=== PATIENT | female | born 1970 | race African-American/Black ===

== ENCOUNTER 2017-01-02 09:43 | Emergency (ER) | payer SELFPAY ==
[2017-01-02] MEDS ORDERED: KETOROLAC TROMETHAMINE INJ/PF 30 MG/1 ML SDV IV ONE (10:30)
[2017-01-02] MEDS ORDERED: HYDROCODONE/ACETAMINOPHEN 5-325 MG TABLET PO ONE (10:30)
--- NOTE | 2017-01-02 10:30 | ER Document Report ---
ED Cardiac - General Chief Complaint: Chest Pain Stated Complaint: CHEST PAIN Notes: The patient is a 46-year-old female, past medical history diabetes, hypertension , gastric sleeve 3 years ago, presents with 2 days of right upper chest wall pain that is worse when she moves her right shoulder and when she palpates the area. She is also having right scapular pain. She is taking ibuprofen without much relief. She has had this in the past and was told that it was a muscle strain. She denies fevers, cough, leg swelling, shortness of breath, nausea, vomiting or abdominal pain. TRAVEL OUTSIDE OF THE [place] IN LAST 30 DAYS: No Past Medical History - General Information source: Patient - Social History Smoking Status: Current Every Day Smoker Family History: Reviewed & Not Pertinent Renal/ Medical History: Denies: Hx Peritoneal Dialysis Review of Systems - Review of Systems Notes: REVIEW OF SYSTEMS: CONSTITUTIONAL: -fevers, -chills EENT: -eye pain, -difficulty swallowing, -nasal congestion CARDIOVASCULAR: +chest pain, -syncope. RESPIRATORY: -cough, -SOB GASTROINTESTINAL: -abdominal pain, - nausea, -vomiting, -diarrhea GENITOURINARY: -dysuria, -hematuria MUSCULOSKELETAL: -back pain, -neck pain SKIN: -rash or skin lesions. HEMATOLOGIC: -easy bruising or bleeding. LYMPHATIC: -swollen, enlarged glands. NEUROLOGICAL: -altered mental status or loss of consciousness, -headache, - neurologic symptoms PSYCHIATRIC: -anxiety, -depression. ALL OTHER SYSTEMS REVIEWED AND NEGATIVE. Physical Exam - Vital signs Vitals: Temp Pulse Resp BP Pulse Ox 98.1 F 77 20 172/86 H 99 01/02/17 09:47 01/02/17 09:47 01/02/17 09:47 01/02/17 09:47 01/02/17 09:47 - Notes Notes: PHYSICAL EXAMINATION: GENERAL: Well-appearing, well-nourished and in no acute distress. HEAD: Atraumatic, normocephalic. EYES: Pupils equal round and reactive to light, extraocular movements intact, sclera anicteric, conjunctiva are normal. ENT: nares patent, oropharynx clear without exudates. Moist mucous membranes. NECK: Normal range of motion, supple without lymphadenopathy LUNGS: Breath sounds clear to auscultation bilaterally and equal. No wheezes rales or rhonchi. HEART: Regular rate and rhythm without murmurs. Tenderness over right upper chest wall. ABDOMEN: Soft, nontender, normoactive bowel sounds. No guarding, no rebound. No masses appreciated. EXTREMITIES: Normal range of motion, no pitting or edema. No cyanosis. NEUROLOGICAL: Cranial nerves grossly intact. Normal speech, normal gait. Normal sensory, motor, and reflex exams. PSYCH: Normal mood, normal affect. SKIN: Warm, Dry, normal turgor, no rashes or lesions noted. Course - Re-evaluation Re-evalutation: Pt has HEART score 3. Moderate risk for PE. D-dimer will be sent. D-dimer negative and troponin negative. Chest x-ray and EKG does not show any acute abnormalities. Patient is chronically anemic and has never required a blood transfusion. No active bleeding at this time. Patient eating in the emergency room. Patient feels much better. Instructed patient to continue Naprosyn and heating pads with follow-up at her primary care physician in 2 days to have her symptoms rechecked. Patient is safe for outpatient workup of this chest pain. - Vital Signs Vital signs: Temp Pulse Resp BP Pulse Ox 98.1 F 77 20 172/86 H 99 01/02/17 09:58 01/02/17 09:58 01/02/17 09:58 01/02/17 09:58 01/02/17 09:58 - Laboratory Result Diagrams: 01/02/17 10:30 01/02/17 10:30 Laboratory results interpreted by me: 01/02/17 01/02/17 01/02/17 10:30 10:30 10:30 RBC 3.38 L Hgb 7.8 L Hct 26.2 L MCV 77 L MCH 23.2 L MCHC 30.0 L RDW 16.6 H Glucose 64 L AST 62 H NT-Pro-B Natriuret Pep 297 H - EKG Interpretation by [facility] EKG shows normal: Sinus rhythm, [place], Intervals, QRS Complexes, ST-T Waves Discharge - Discharge Clinical Impression: Chest pain Qualifiers: Chest pain type: unspecified Qualified Code(s): R07.9 - Chest pain, unspecified Condition: Good Disposition: HOME, SELF-CARE Additional Instructions: Take Naprosyn with food to help with any pain. You may also use heating pads and ice packs. Your chest x-ray, EKG and labs looking at your heart and lungs are unremarkable today. You must follow-up with your primary care physician on Wednesday for further evaluation and treatment of this chest pain. CHEST PAIN OF UNCLEAR CAUSE: The exact cause of your chest pain isn't clear. Fortunately, there is no evidence of a dangerous medical condition. Further testing may be required to find the source of the pain. Most often, we find that this pain is coming from the chest wall -- the muscles or rib joints in the chest. But chest pain can come from the lung and lung lining, the esophagus, the heart valves or heart lining, and even the stomach or gallbladder. Rest. Eat lightly until the pain is gone. We may prescribe medicine for pain and inflammation. You should call the physician immediately if the pain radiates to the shoulder, jaw or arms; if you start to run a fever or develop a cough; or if you develop shortness of breath, or other new or alarming symptoms. NORMAL EXAM AND WORKUP: At this time, your examination and workup show no significant abnormality. No significant abnormal physical findings were noted. All laboratory, EKG, and imaging (x-ray, CT scans, ultrasound) studies that were ordered show no significant abnormality. Although your examination and all studies that were ordered showed no significant abnormal finding, there are no examinations and no studies that are 100% accurate. There is always the possibility that some abnormality could exist and not be detected with physical examination or within the limits and capabilities of laboratory and other studies. You should return or follow up as you were instructed on your visit today for further evaluation if your symptoms do not resolve. CHEST WALL PAIN: Your chest pain may be coming from the chest wall. This is often caused by straining the muscles or joints in the chest during physical activity, direct trauma, coughing, or vigorous vomiting. Persons with arthritis are especially prone to this type of pain, due to inflammation of the cartilage joints near the breast bone. Occasionally, no cause can be found. Rest from strenuous physical activity. This kind of chest pain is usually made worse by movement of the chest. Depending on the symptoms, we may prescribe medicine for pain, muscle relaxation, and antiinflammatory effects. If the pain is new, and seems to be due to muscle strain, cold packs can help. Otherwise, apply gentle warmth to the painful area for 15 minutes every hour or two. You should call contact the doctor immediately if things change. Further evaluation is needed if you develop a fever or cough, if the nature of the pain changes, or if you become short of breath. ANGINA EPISODE: Your physician has diagnosed the pain you experienced as an episode of angina. Angina occurs when a portion of the heart muscle temporarily lacks oxygen. It does not cause any permanent heart damage, but serves as a warning. Hospitalization is not necessary now. Evaluation of your cardiac condition , and medical therapy for angina will be necessary. It's important you be sure to keep all appointments and take medication exactly as prescribed. Angina is usually treated with a type of "nitrate" medication. This is available as ointment, pills, or sublingual (under the tongue) tablets. Depending on your clinical situation, other medications may be added to help control angina. These may include beta blockers or calcium blockers. If episodes of angina are occurring with increased frequency, or if chest pain lasts longer than 15 minutes or does not respond to nitroglycerin, you must seek emergency medical care immediately. ACID REFLUX DISEASE (GERD): Gastro-Esophageal Reflux Disease (GERD) is caused by stomach acid refluxing back up into the esophagus. The valve at the end of the esophagus may be weak. This is common in persons with a hiatal hernia. GERD symptoms can include indigestion, chest pain, heartburn, or food "sticking." Certain foods, alcohol, and aspirin can make GERD worse. Treatment depends on the severity. Usually, antacids or acid-suppressing medicines are used. When the esophagus is acutely inflamed, the physician will often prescribe membrane-protective drugs such as Carafate. Some patients benefit from medication such as Reglan that tightens the valve at the top of the stomach. Avoid those foods that bring on your symptoms. For many people, these foods are coffee, chocolate, onions, garlic, and carbonated drinks. Don't use alcohol, aspirin, caffeine, or tobacco. Don't eat late at night -- within 4 hours of bedtime. Don't over-eat. If necessary, elevate the head of your bed about 4 inches so that stomach acid will not roll up into your esophagus. Call the doctor if you develop severe chest pain, inability to swallow fluids, fever, or worsening symptoms. FOLLOW-UP CARE: If you have been referred to a physician for follow-up care, call the physician s office for an appointment as you were instructed or within the next two days. If you experience worsening or a significant change in your symptoms, notify the physician immediately or return to the Emergency Department at any time for re-evaluation. Forms: Elevated Blood Pressure, Smoking Cessation Education, Return to Work
[2017-01-02 10:53] LABS: ABSOLUTE BASOPHILS # (AUTO) 0.1 10^3/uL (0.0-0.2); ABSOLUTE EOSINOPHILS # (AUTO) 0.2 10^3/uL (0.0-0.6); ABSOLUTE LYMPHOCYTES (AUTO) 1.6 10^3/uL (0.5-4.7); ABSOLUTE MONOCYTES (AUTO) 0.5 10^3/uL (0.1-1.4); ABSOLUTE NEUT (AUTO) 3.8 10^3/uL (1.7-8.2); BASOPHILS % (AUTO) 0.8 % (0-2); EOSINOPHILS % (AUTO) 2.8 % (0-6); HEMATOCRIT 26.2 % (36.0-47.0); HGB HCT DIFFERENCE -2.8; LYMPHOCYTES % (AUTO) 26.4 % (13-45); MEAN CORPUSCULAR HEMOGLOBIN 23.2 pg (27.0-33.4); MEAN CORPUSCULAR VOLUME 77 fl (80-97); MONOCYTES % (AUTO) 8.1 % (3-13); RED BLOOD COUNT 3.38 10^6/uL (3.72-5.28); RED CELL DISTRIBUTION WIDTH 16.6 % (11.5-14.0); SEGMENTED NEUTROPHILS % (AUTO) 61.9 % (42-78); WHITE BLOOD COUNT 6.1 10^3/uL (4.0-10.5)
[2017-01-02 11:00] LABS: HEMOGLOBIN 7.8 g/dL (12.0-15.5)
[2017-01-02 11:09] LABS: ALANINE AMINOTRANSFERASE 51 U/L (9-52); ALBUMIN 3.7 g/dL (3.5-5.0); ALKALINE PHOSPHATASE 109 U/L (38-126); ANION GAP 7 (5-19); ASPARTATE AMINO TRANSFERASE 62 U/L (14-36); BILIRUBIN,TOTAL 0.6 mg/dL (0.2-1.3); BLOOD UREA NITROGEN 13 mg/dL (7-20); CALCIUM 8.9 mg/dL (8.4-10.2); CARBON DIOXIDE 30 mmol/L (22-30); CHLORIDE 107 mmol/L (98-107); CREATINE KINASE 55 U/L (30-135); CREATININE RESULT 0.72 mg/dL (0.52-1.25); GLUCOSE 64 mg/dL (75-110); LIPASE 129.5 U/L (23-300); POTASSIUM 3.6 mmol/L (3.6-5.0); SODIUM 143.6 mmol/L (137-145); TOTAL PROTEIN 6.9 g/dL (6.3-8.2)
[2017-01-02 11:21] LABS: TROPONIN I < 0.012 ng/mL
[2017-01-02 12:04] VITALS: BP 142/79
--- NOTE | 2017-01-02 19:29 | EKG REPORT ---
SEVERITY:- BORDERLINE ECG - SINUS RHYTHM BORDERLINE R WAVE PROGRESSION, ANTERIOR LEADS : Confirmed by: Tariq Hager MD 02-Jan-2017 19:28:47
== END 2017-01-02 12:09 | disposition home or self-care (01) ==
LOC: ER 09:43
DX: R07.9 Chest pain, unspecified (principal); E11.9 Type 2 diabetes mellitus without complications; I10 Essential (primary) hypertension; F17.210 Nicotine dependence, cigarettes, uncomplicated
CPT/HCPCS: 93005; 99285; 96374; 36415; 82550; 83690; 85025; 80076; 80048; 84484; 85379; 83880; 71020; 93010; J1885

== ENCOUNTER 2017-02-23 13:52 | Emergency (ER) | payer SELFPAY ==
--- NOTE | 2017-02-23 15:01 | ER Document Report ---
ED GI/ - General Chief Complaint: STD Exposure Stated Complaint: STD CHECK Time seen by provider: 14:58 Mode of Arrival: Ambulatory Information source: Patient Notes: 46-year-old female presents to ED for concern of STDs exposure. She states she has a female significant other now and when they were "having fun "she had some bleeding. She states she's not been with a man in 10 months that she has an STD she needs to know. TRAVEL OUTSIDE OF THE [place] IN LAST 30 DAYS: No - HPI Patient complains to provider of: Vaginal bleeding Onset: This afternoon Timing/Duration: Better Quality of pain: No pain Pain Level: Denies Vaginal bleeding (Compared to normal period): Spotting LMP: last week Associated symptoms: Other - Vaginal bleeding Exacerbated by: Other - "Having fun " Relieved by: Denies Similar symptoms previously: Yes Recently seen / treated by doctor: No - Related Data Allergies/Adverse Reactions: No Known Allergies Allergy (Verified 02/23/17 14:14) Past Medical History - General Information source: Patient - Social History Smoking Status: Current Every Day Smoker Cigarette use (# per day): Yes - 6 cigarettes a day Smoking Education Provided: Yes - less than 2 minutes Frequency of alcohol use: Social - Couple times a week Drug Abuse: None Occupation: [employer] Lives with: Spouse/Significant other Family History: Reviewed & Not Pertinent Patient has suicidal ideation: No Patient has homicidal ideation: No - Past Medical History Cardiac Medical History: Reports: Hx Hypertension Pulmonary Medical History: Reports: None EENT Medical History: Reports: None Neurological Medical History: Reports: None Endocrine Medical History: Reports: Hx Diabetes Mellitus Type 2, Hx Hypothyroidism Renal/ Medical History: Reports: None Malignancy Medical History: Reports: None GI Medical History: Reports: None Musculoskeltal Medical History: Reports None Skin Medical History: Reports None Psychiatric Medical History: Reports: None Traumatic Medical History: Reports: None Infectious Medical History: Reports: None Past Surgical History: Reports: Hx Gastric Bypass Surgery - Gastric sleeve Review of Systems - Review of Systems Constitutional: No symptoms reported EENT: No symptoms reported Cardiovascular: No symptoms reported Respiratory: No symptoms reported Gastrointestinal: No symptoms reported Genitourinary: No symptoms reported Female Genitourinary: Vaginal bleeding Musculoskeletal: No symptoms reported Skin: No symptoms reported Hematologic/Lymphatic: No symptoms reported Neurological/Psychological: No symptoms reported -: Yes All other systems reviewed and negative Physical Exam - Vital signs Vitals: Temp Pulse Resp BP Pulse Ox 99.3 F 80 16 139/74 H 98 02/23/17 14:17 02/23/17 14:17 02/23/17 14:17 02/23/17 14:17 02/23/17 14:17 Interpretation: Normal - General General appearance: Appears well, Alert - HEENT Head: Normocephalic, Atraumatic Eyes: Normal Pupils: PERRL - Respiratory Respiratory status: No respiratory distress Chest status: Nontender Breath sounds: Normal Chest palpation: Normal - Cardiovascular Rhythm: Regular Heart sounds: Normal auscultation Murmur: No - Abdominal Inspection: Normal Distension: No distension Bowel sounds: Normal Tenderness: Nontender Organomegaly: No organomegaly - Back Back: Normal, Nontender - Extremities General upper extremity: Normal inspection, Nontender, Normal color, Normal ROM , Normal temperature General lower extremity: Normal inspection, Nontender, Normal color, Normal ROM , Normal temperature, Normal weight bearing. No: Jenifer's sign - Neurological Neuro grossly intact: Yes Cognition: Normal Orientation: AAOx4 [place] Coma Scale Eye Opening: Spontaneous [place] Coma Scale Verbal: Oriented [place] Coma Scale Motor: Obeys Commands Ond[place] Coma Scale Total: 15 Speech: Normal Motor strength normal: LUE, RUE, LLE, RLE Sensory: Normal - Psychological Associated symptoms: Normal affect, Normal mood - Skin Skin Temperature: Warm Skin Moisture: Dry Skin Color: Normal Course - Re-evaluation Re-evalutation: 02/23/17 16:13 Patient was treated with azithromycin 1 g Rocephin 250 IM with lidocaine and Macrobid. She stated she had a possible STD exposure and she has a UTI. Urine culture sent. 02/23/17 19:54 Patient returned called to the emergency room and the GC and Chlamydia were negative patient was informed. - Vital Signs Vital signs: Temp Pulse Resp BP Pulse Ox 97.4 F 69 18 135/79 H 100 02/23/17 16:15 02/23/17 16:15 02/23/17 16:15 02/23/17 16:15 02/23/17 16:15 - Laboratory Laboratory results interpreted by me: 02/23/17 15:07 Urine Urobilinogen 2.0 H Ur Leukocyte Esterase TRACE H Discharge - Discharge Clinical Impression: Possible exposure to STD UTI (urinary tract infection) Qualifiers: Urinary tract infection type: site unspecified Hematuria presence: without hematuria Qualified Code(s): N39.0 - Urinary tract infection, site not specified Condition: Stable Disposition: HOME, SELF-CARE Instructions: Family Physicians / Practices Additional Instructions: URINARY TRACT INFECTION: Your evaluation indicates that you have a urinary tract infection. This is due to germs growing in the bladder. This is a common problem. This infection usually responds quickly to antibiotics. Your antibiotic should be taken exactly as prescribed. Drink plenty of fluids -- three to four quarts a day. Occasionally, a bladder anesthetic will be prescribed to help stop the feeling of urgency until the antibiotic has a chance to clear the infection. This may cause your urine to be dark orange. Certain urine infections require a culture. If the doctor obtained a culture, the results will be back in two days. You should call to see if a change in treatment is needed. A repeat urinalysis after you finish treatment is often recommended. The physician will let you know if further testing is required. Call the doctor if you develop fever, chills, flank pain, inability to urinate, or blood in the urine. NITROFURANTOIN (MACRODANTIN, MACROBID): You have received a prescription for nitrofurantoin (Macrodantin). This antibiotic is used for urinary tract infections. Women who are or nursing should notify the physician before taking this medicine. If you have ever had a problem caused by this medication in the past, be sure the physician is aware of it. Common side effects of this medicine include nausea, vomiting, or decreased appetite. Notify your physician if these side effects become severe. Immediately stop this medicine and call the physician if you develop cough , shortness of breath, chest pain, weakness, jaundice (yellow color of the skin and whites of the eyes), or a skin rash. Rocephin You have been given an injection of an antibiotic called Rocephin ( ceftriaxone). Sometimes the injection must be combined with antibiotic pills. For some infections, such as an uncomplicated ear infection, Rocephin provides all the antibiotic that's needed. The antibiotic will be in your body for about two days. For serious infections, we usually repeat doses of Rocephin daily. Side effects are very unusual following a shot. Women may develop vaginal yeast infections, and babies can get yeast (thrush) in the mouth following the use of antibiotics. Contact your physician if you have symptoms with this medication. Allergy to this antibiotic can result in hives, wheezing, faintness, or itching. If symptoms of allergy occur, call the doctor at once. AZITHROMYCIN: Azithromycin (Zithromax) is a broad spectrum antibiotic in the same class as erythromycin. It can treat a variety of bacterial infections, but is most frequently used for respiratory infections. Azithromycin is extremely long-lasting. It accumulates in body tissues and continues to kill bacteria for many days. In order to improve absorption, Azithromycin should be taken at least one hour before or two hours after a meal. It does not have the same strong tendency to upset the stomach as erythromycin and is usually very well tolerated. Patients who have had a rash or other true allergic reactions to erythromycin should not take this medication. Call if you develop gastrointestinal distress, severe diarrhea, rash, hives, itching, or shortness of breath. FOLLOW-UP CARE: If you have been referred to a physician for follow-up care, call the physician s office for an appointment as you were instructed or within the next two days. If you experience worsening or a significant change in your symptoms, notify the physician immediately or return to the Emergency Department at any time for re-evaluation. Please call [phone] and about 2-3 hours for your results you will need to speak to me yourself I cannot leave messages and I cannot give results to anyone but yourself Prescriptions: Nitrofurantoin/Nitrofuran Mac [Macrobid 100 mg Capsule] 1 tab PO BID #20 capsule Forms: Smoking Cessation Education, Elevated Blood Pressure
[2017-02-23 15:46] LABS: AMORPHOUS SEDIMENT,URINE TRACE /HPF; APPEARANCE,URINE SLIGHTLY-CLOUDY; BILIRUBIN,URINE NEGATIVE (NEGATIVE); GLUCOSE, URINE NEGATIVE (NEGATIVE); KETONES,URINE NEGATIVE (NEGATIVE); LEUKOCYTE ESTERASE,URINE TRACE (NEGATIVE); NITRITE,URINE NEGATIVE (NEGATIVE); PROTEIN,URINE NEGATIVE (NEGATIVE); URINE SPECIFIC GRAVITY 1.018
[2017-02-23] MEDS ORDERED: AZITHROMYCIN 250 MG TABLET PO ONE (15:58)
[2017-02-23] MEDS ORDERED: NITROFURANTOIN MONOHYD/M-CRYST 100 MG CAPSULE PO ONE (15:58)
[2017-02-23] MEDS ORDERED: CEFTRIAXONE INJ 250 MG VIAL IM ONE (15:58)
[2017-02-23] MEDS ORDERED: LIDOCAINE 1% INJ-PF (10 MG/ML) 30 ML SDV INJ ONE (15:58)
[2017-02-23 16:18] VITALS: BP 135/79
[2017-02-23 17:09] LABS: CHLAM PCR NOT DETECTED (NOT DETECT)
== END 2017-02-23 16:43 | disposition home or self-care (01) ==
LOC: ER 13:52
DX: N39.0 Urinary tract infection, site not specified (principal); Z20.2 Contact with and (suspected) exposure to infections with a predominantly sexual mode of transmission; F17.210 Nicotine dependence, cigarettes, uncomplicated
CPT/HCPCS: 99283; 96372; 87086; 87210; 81001; 87491; 87591; J3490; J0696; J8499

== ENCOUNTER 2019-03-29 19:54 | Observation (INO) | payer BC ==
--- NOTE | 2019-03-29 20:05 | ER Document Report ---
ED Medical Screen (RME) - General Stated Complaint: ABDOMINAL PAIN Time Seen by Provider: 03/29/19 20:02 Mode of Arrival: Wheelchair Information source: Patient, Friend Notes: Patient presents to the emergency department with complaints of severe epigastric abdominal pain that radiates to her back. Patient reports she was at work at the [employer] when it started all of a sudden. Patient reports she vomited did one time. Reports history of hypertension and diabetes. Reports that she had a gastric sleeve done and is no longer a diabetic. Kyler denies trauma. Denies diarrhea. No complaints of cardiac disease. Patient is very upset, moaning and crying. Reporting she is in severe pain. I have greeted and performed a rapid initial assessment of this patient. A comprehensive ED assessment and evaluation of the patient, analysis of test results and completion of the medical decision making process will be conducted by additional ED providers. Dictation of this chart was performed using voice recognition software; therefore, there may be some unintended grammatical errors. TRAVEL OUTSIDE OF THE [place] IN LAST 30 DAYS: No - Related Data Allergies/Adverse Reactions: No Known Allergies Allergy (Verified 02/23/17 14:14) Past Medical History - Past Medical History Cardiac Medical History: Reports: Hx Hypertension Endocrine Medical History: Reports: Hx Diabetes Mellitus Type 2, Hx Hypothyroidism Renal/ Medical History: Denies: Hx Peritoneal Dialysis Past Surgical History: Reports: Hx Abdominal Surgery - Gastric Sleeve, Hx Gastric Bypass Surgery - Gastric sleeve
--- NOTE | 2019-03-29 20:39 | RADIOLOGY REPORT (SQ) ---
EXAM DESCRIPTION: XR CHEST 2 VIEWS COMPLETED DATE/TME: 03/29/2019 20:03 CLINICAL HISTORY: 48 years, Female, epigastric chest pain COMPARISON: None. NUMBER OF VIEWS: Two TECHNIQUE: PA and lateral chest radiographs were obtained. LIMITATIONS: None. FINDINGS: Cardiac and mediastinal contours are normal in appearance. Lungs are clear. No pleural effusion or pneumothorax. IMPRESSION: No acute disease. copyright 2010 [employer]- All Rights Reserved
[2019-03-29 21:01] LABS: ABSOLUTE EOSINOPHILS # (AUTO) 0.1 10^3/uL (0.0-0.6); ABSOLUTE MONOCYTES (AUTO) 0.3 10^3/uL (0.1-1.4); ABSOLUTE NEUT (AUTO) 4.7 10^3/uL (1.7-8.2); BASOPHILS % (AUTO) 0.6 % (0-2); EOSINOPHILS % (AUTO) 1.3 % (0-6); HEMATOCRIT 32.9 % (36.0-47.0); LYMPHOCYTES % (AUTO) 15.9 % (13-45); MEAN CORPUSCULAR HEMOGLOBIN 23.8 pg (27.0-33.4); MEAN CORPUSCULAR HGB CONC 30.5 g/dL (32.0-36.0); MEAN CORPUSCULAR VOLUME 78 fl (80-97); MONOCYTES % (AUTO) 4.8 % (3-13); PLATELET COUNT 222 10^3/uL (150-450); RED BLOOD COUNT 4.21 10^6/uL (3.72-5.28); SEGMENTED NEUTROPHILS % (AUTO) 77.4 % (42-78); TOTAL CELLS COUNTED % (AUTO) 100 %; WHITE BLOOD COUNT 6.1 10^3/uL (4.0-10.5)
[2019-03-29] MEDS ORDERED: HYDROMORPHONE HCL INJ/PF 2 MG/ML AMPULE IV ONE ×2 (21:08→21:58)
[2019-03-29] MEDS ORDERED: ONDANSETRON HCL INJ/PF 4 MG/2 ML SDV IV ONE (21:08)
[2019-03-29] MEDS ORDERED: NORMAL SALINE 1000 ML 1,000 ML IV ONE (21:09)
--- NOTE | 2019-03-29 21:17 | ER Document Report ---
ED GI/ - General Chief Complaint: Epigastric Pain Stated Complaint: ABDOMINAL PAIN Time Seen by Provider: 03/29/19 20:02 Mode of Arrival: Wheelchair TRAVEL OUTSIDE OF THE [place] IN LAST 30 DAYS: No - HPI Notes: 03/29/19 21:11 Patient is a 48-year-old female presents to the emergency department with an acute onset of epigastric pain and vomiting that started around 530 PM today. Patient states that she was at work when she developed nausea and vomiting. Patient reports that the epigastric pain feels like a sharp stabbing discomfort that radiates straight into her back. Patient has vomited twice since 530. Patient last ate a slice of pizza around 1230. Patient complains of severe pain. Patient does have a history of a gastric sleeve which was placed around 1290-2868. Denies Diarrhea. Patient reports that she is a social drinker last beverage was 2 days ago. - Related Data Allergies/Adverse Reactions: No Known Allergies Allergy (Verified 02/23/17 14:14) Past Medical History - General Information source: Patient, Friend - Social History Smoking Status: Current Every Day Smoker Cigarette use (# per day): Yes - 5-6 CIGARETTES PER DAY Smoking Education Provided: Yes Frequency of alcohol use: Social Drug Abuse: Marijuana Lives with: Family Family History: Reviewed & Not Pertinent Patient has suicidal ideation: No Patient has homicidal ideation: No - Past Medical History Cardiac Medical History: Reports: Hx Hypertension Pulmonary Medical History: Reports: None EENT Medical History: Reports: None Neurological Medical History: Reports: None Endocrine Medical History: Reports: Hx Diabetes Mellitus Type 2, Hx Hypothyroidism Renal/ Medical History: Reports: None. Denies: Hx Peritoneal Dialysis Malignancy Medical History: Reports: None GI Medical History: Reports: None Musculoskeletal Medical History: Reports None Skin Medical History: Reports None Psychiatric Medical History: Reports: None Traumatic Medical History: Reports: None Infectious Medical History: Reports: None Past Surgical History: Reports: Hx Abdominal Surgery - Gastric Sleeve, Hx Gastric Bypass Surgery - Gastric sleeve Review of Systems - Review of Systems Constitutional: See HPI EENT: No symptoms reported Cardiovascular: No symptoms reported Respiratory: No symptoms reported Gastrointestinal: See HPI Genitourinary: No symptoms reported Female Genitourinary: No symptoms reported Musculoskeletal: No symptoms reported Skin: No symptoms reported Hematologic/Lymphatic: No symptoms reported Neurological/Psychological: No symptoms reported Physical Exam - Vital signs Vitals: Temp Pulse Resp BP Pulse Ox 98.4 F 61 20 178/81 H 99 03/29/19 20:01 03/29/19 20:01 03/29/19 20:01 03/29/19 20:01 03/29/19 20:01 Interpretation: Hypertensive - Notes Notes: GENERAL: Ill-appearing, + acute distress, unable to find position of comfort on stretcher, rocking back and forth on bed HEAD: Atraumatic, normocephalic. EYES: Pupils equal round and reactive to light, extraocular movements intact, sclera anicteric, conjunctiva are normal. ENT: TMs normal, nares patent, oropharynx clear without exudates. Moist mucous membranes. NECK: Normal range of motion, supple without lymphadenopathy or JVD. LUNGS: Breath sounds clear to auscultation bilaterally and equal. No wheezes rales or rhonchi. HEART: Regular rate and rhythm without murmurs, rubs or gallops. ABDOMEN: Soft, epigastric and LUQ tenderness, normoactive bowel sounds. + guarding, no rebound. No masses appreciated. EXTREMITIES: Normal range of motion, no pitting or edema. No clubbing or cyanosis. NEUROLOGICAL: Cranial nerves II through XII grossly intact. Normal speech, normal gait. PSYCH: Normal mood, normal affect. SKIN: Warm, Dry, normal turgor, no rashes or lesions noted. Course - Re-evaluation Re-evalutation: 03/29/19 21:10 Upon initial evaluation patient is in obvious acute distress. Patient is rocking back and forth on stretcher unable to find position of comfort. Patient is guarding abdomen. Abdomen is soft and tender in the epigastric and left upp er quadrant region it patient does report a history of gastric sleeve. Appropriate lab work was placed in triage and blood has been drawn, labs pending. Will medicate for nausea and pain control. Will initiate IV fluid bolus. Due to the history of gastric sleeve plan the plan is to order imaging to rule out perforation or any other emergent problems. Will obtain a more thorough abdominal assessment once patient is more comfortable. 03/29/19 21:48 After receiving pain medication patient states that her pain level has slightly improved. Patient is able to rest on her back. Patient continues to have significant tenderness with palpation to the epigastric and left upper quadrant region. CT scan ordered at this time. Lipase, liver enzymes are normal. Continue to monitor. 03/29/19 23:31 Updated patient on the results of the CT scan. Patient resting more comfortably, smiling and appropriate. Informed patient that gallstones were noted in the CT scan and for further evaluation a ultrasound would be needed. Patient and family verbalized understanding and denies questions or concerns at this time. 03/30/19 00:26 Patient ultrasound positive for acute cholecystitis, the ultrasound did show pericholecystic fluid. Spoke with on-call surgicalist Dr. Mcclellan who will admit patient. 03/30/19 00:49 Updated on plan of care and admission. Aware to stay n.p.o. Resting comfortably on stretcher. Patient and family deny questions at this time. - Vital Signs Vital signs: Temp Pulse Resp BP Pulse Ox 98.4 F 61 12 195/101 H 100 03/29/19 20:01 03/29/19 20:01 03/29/19 23:00 03/29/19 22:02 03/29/19 23:00 - Laboratory Result Diagrams: 03/29/19 20:45 03/29/19 20:45 Laboratory results interpreted by me: 03/29/19 03/29/19 03/29/19 20:45 20:45 23:40 Hgb 10.0 L Hct 32.9 L MCV 78 L MCH 23.8 L MCHC 30.5 L RDW 15.0 H Potassium 3.5 L Urine Ketones 20 H Urine Blood SMALL H Urine Urobilinogen 4.0 H 03/29/19 21:51 She is slightly anemic with a hemoglobin of 10 and hematocrit of 32.9. Patient states that she has a history of anemia and is currently taking iron for this. - Diagnostic Test Radiology reviewed: Reports reviewed Discharge - Discharge Clinical Impression: Cholelithiasis, Abdominal pain, Nausea & vomiting, Cholecystitis Condition: Stable Disposition: ADMITTED OBSERVATION Admitting Provider: Surgicalist Unit Admitted: Surgical Floor
[2019-03-29 21:36] LABS: ALANINE AMINOTRANSFERASE 30 U/L (9-52); ALKALINE PHOSPHATASE 104 U/L (38-126); ANION GAP 8 (5-19); ASPARTATE AMINO TRANSFERASE 24 U/L (14-36); BILIRUBIN,DIRECT 0.2 mg/dL (0.0-0.4); BILIRUBIN,TOTAL 0.3 mg/dL (0.2-1.3); BLOOD UREA NITROGEN 13 mg/dL (7-20); CALCIUM 9.9 mg/dL (8.4-10.2); CARBON DIOXIDE 29 mmol/L (22-30); CHLORIDE 104 mmol/L (98-107); CREATINE KINASE 64 U/L (30-135); GLUCOSE 86 mg/dL (75-110); LIPASE 187.2 U/L (23-300); POTASSIUM 3.5 mmol/L (3.6-5.0); TOTAL PROTEIN 7.1 g/dL (6.3-8.2)
--- NOTE | 2019-03-29 22:40 | RADIOLOGY REPORT (SQ) ---
EXAM DESCRIPTION: CT ABDOMEN PELVIS WITH IV CONTRAST COMPLETED DATE/TME: 03/29/2019 21:40 CLINICAL HISTORY: 48 years, Female, epigastric pain, vomiting, hx. gastric sleeve COMPARISON: None. TECHNIQUE: Contrast enhanced CT of the abdomen/pelvis was performed. Coronal and sagittal reformations were created. Images stored on PACS. All CT scanners at this facility use dose modulation, iterative reconstruction, and/or weight based dosing when appropriate to reduce radiation dose to as low as reasonably achievable (ALARA). [facility]: Dose Right [facility]: CareDose [facility]: Dose Right [facility]: Teradose 4D [facility]: [employer] LIMITATIONS: None. FINDINGS: Limited evaluation of the lower chest reveals clear lung bases. The liver, spleen, pancreas, and both adrenal glands appear normal. Gallstones are noted about the gallbladder lumen. There is mild intrahepatic and common bile duct dilatation to the level of the ampulla. Both kidneys enhance symmetrically. There is no hydronephrosis or hydroureter. The urinary bladder is collapsed, thus its evaluation is limited. Fluid density foci are noted about both adnexa, likely indicating functional cysts given their small size. A few scattered colonic diverticula are noted. The small and large bowel are otherwise normal in caliber without areas of focal wall thickening. No evidence of bowel obstruction. The appendix is normal. Mild calcifications are noted about the abdominal aorta. A mildly enlarged left inguinal lymph node is noted measuring 1.2 x 1.3 cm in size on image 82 of series 3, nonspecific. There are postsurgical changes of gastric sleeve procedure. No significant gastric distention is identified. Bone windows show no destructive osseous lesions. IMPRESSION: Cholelithiasis with mild dilatation of the intrahepatic and common bile ducts to the level of the ampulla. Correlate for obstructive laboratories. Mildly enlarged left inguinal lymph node, nonspecific. TECHNICAL DOCUMENTATION: Quality ID # 436: Final reports with documentation of one or more dose reduction techniques (e.g., Automated exposure control, adjustment of the mA and/or kV according to patient size, use of iterative reconstruction technique) copyright 2011 [employer]- All Rights Reserved
--- NOTE | 2019-03-30 00:12 | RADIOLOGY REPORT (SQ) ---
EXAM DESCRIPTION: US ABDOMEN LIMITED COMPLETED DATE/TME: 03/29/2019 22:55 CLINICAL HISTORY: 48 years, Female, epigastric pain, eval ducts COMPARISON: CT done the same date TECHNIQUE: Grayscale and color images of the abdomen LIMITATIONS: None. FINDINGS: The visualized portions of the pancreas, abdominal aorta, and IVC appear unremarkable. The liver is normal in size, shape, and echotexture. The liver measures 16.0 cm. The main portal vein demonstrates normal hepatopedal flow. The gallbladder contains multiple stones. There is a small amount of pericholecystic fluid. The gallbladder wall measures up to 3 mm in diameter. A positive sonographic Randall sign was elicited. The common bile duct is dilated measuring up to 1.3 cm in diameter. The right kidney measures 10.8 x 5.2 cm. No hydronephrosis. IMPRESSION: Cholelithiasis with pericholecystic fluid and a sonographic Randall sign, concerning for acute cholecystitis. Dilated common bile duct, which may be due to choledocholithiasis. An MRCP may be useful in further evaluation. copyright 2010 [email or web address]- All Rights Reserved
[2019-03-30 00:25] LABS: APPEARANCE,URINE CLEAR; BILIRUBIN,URINE NEGATIVE (NEGATIVE); COLOR,URINE YELLOW; GLUCOSE, URINE NEGATIVE (NEGATIVE); KETONES,URINE 20 mg/dL (NEGATIVE); LEUKOCYTE ESTERASE,URINE NEGATIVE (NEGATIVE); NITRITE,URINE NEGATIVE (NEGATIVE); PROTEIN,URINE NEGATIVE (NEGATIVE)
[2019-03-30] MEDS ORDERED: ONDANSETRON HCL INJ/PF 4 MG/2 ML SDV IV PRN ×2 (00:27→12:41)
[2019-03-30] MEDS ORDERED: PIPERACILLIN/TAZOBACTAM 3.375 GM VIAL IV PRN (00:33)
[2019-03-30] MEDS ORDERED: PIPERACILLIN SODIUM/TAZOBACTAM 3.375 GM in NORMAL SALINE 100 ML IV ONE (00:45)
[2019-03-30 00:47] LABS: URINE SPECIFIC GRAVITY > 1.060
[2019-03-30] MEDS: MORPHINE SULFATE 10 MG/ML INJ IV PRN ×5 (01:32→23:29)
[2019-03-30] MEDS: DEXTROSE 5%-LACTATED RINGERS 1,000 ML IV PRN ×2 (02:18→23:30)
[2019-03-30] MEDS ORDERED: PIPERACILLIN/TAZOBACTAM 3.375 GM VIAL IV ONE (05:41)
[2019-03-30] MEDS: PIPERACILLIN SODIUM/TAZOBACTAM 3.375 GM in NORMAL SALINE 100 ML IV SCH ×4 (05:43→23:29)
--- NOTE | 2019-03-30 07:04 | PDOC H&P ---
History of Present Illness Admission Date/PCP: 03/30/19 00:46 Patient complains of: Severe unrelenting right upper quadrant pain, nausea History of Present Illness: MILLIE CAMPBELL is a 48 year old female with a 2-day history of sharp, stabbing, unrelenting, constant right upper quadrant abdominal pain. She has had associated nausea. At worst, her pain was 9 out of 10. The pain began after eating. The pain does radiate to her back. Nothing makes her pain better. Eating made it worse. The patient denies chest pain, shortness of breath, fevers, chills, melena, hematochezia, hematemesis, blurry vision, orthostasis, fatigue, or malaise. Past Medical History Cardiac Medical History: Reports: Hypertension Denies: Congestive Heart Failure, Myocardial Infarction Pulmonary Medical History: Reports: None Denies: Asthma, Bronchitis, Chronic Obstructive Pulmonary Disease (COPD), Pneumonia, Tuberculosis EENT Medical History: Reports: None Neurological Medical History: Reports: None Denies: Seizures Endocrine Medical History: Reports: Diabetes Mellitus Type 2, Hypothyroidism Renal/ Medical History: Reports: None Denies: End Stage Renal Disease Malignancy Medical History: Reports: None GI Medical History: Reports: None Denies: Cirrhosis, Gastroesophageal Reflux Disease Musculoskeltal Medical History: Reports: None Denies: Arthritis Skin Medical History: Reports: None Psychiatric Medical History: Reports: None Denies: Bipolar Disorder, Depression Traumatic Medical History: Reports: None Hematology: Reports: Anemia Denies: Bleeding Tendencies Infectious Medical History: Reports: None Past Surgical History Past Surgical History: Reports: Gastric Bypass Surgery - Gastric sleeve Social History Lives with: Family Smoking Status: Current Every Day Smoker Drugs: Marijuana Family History Family History: Reviewed & Not Pertinent Parental Family History Reviewed: Yes Children Family History Reviewed: Yes Sibling(s) Family History Reviewed.: Yes Medication/Allergy Home Medications: Nitrofurantoin/Nitrofuran Mac [Macrobid 100 mg Capsule] 1 tab PO BID #20 capsule 02/23/17 Allergies/Adverse Reactions: No Known Allergies Allergy (Verified 02/23/17 14:14) Review of Systems Constitutional: ABSENT: anorexia, chills, fatigue, fever(s) Eyes: ABSENT: visual disturbances Ears: ABSENT: hearing changes Nose, Mouth, and Throat: ABSENT: mouth pain, sore throat Cardiovascular: ABSENT: chest pain Respiratory: ABSENT: cough Gastrointestinal: PRESENT: abdominal pain, nausea. ABSENT: constipation, heartburn, hematemesis, hematochezia Genitourinary: ABSENT: dysuria Musculoskeletal: ABSENT: back pain Integumentary: ABSENT: pruritus, rash Neurological: ABSENT: confusion, convulsions, dizziness Psychiatric: ABSENT: anxiety, depression Endocrine: ABSENT: cold intolerance, heat intolerance Hematologic/Lymphatic: ABSENT: easy bleeding, easy bruising Physical Exam Vital Signs: Temp Pulse Resp BP Pulse Ox 98.1 F 61 13 131/79 H 99 03/30/19 01:42 03/29/19 20:01 03/30/19 02:01 03/30/19 02:00 03/30/19 02:01 Intake & Output 03/28/19 03/29/19 03/30/19 06:59 06:59 06:59 Intake Total 1100 Balance 1100 Weight 83.1 kg General appearance: PRESENT: cooperative, mild distress Head exam: PRESENT: atraumatic, normocephalic Eye exam: PRESENT: EOMI, PERRLA. ABSENT: scleral icterus Mouth exam: ABSENT: moist, neck supple Teeth exam: ABSENT: poor dentation Neck exam: ABSENT: meningismus, tenderness, thyromegaly, tracheal deviation Respiratory exam: PRESENT: clear to auscultation neftaly, unlabored. ABSENT: chest wall tenderness, tachypnea, wheezes Cardiovascular exam: PRESENT: RRR Pulses: PRESENT: normal radial pulses Vascular exam: PRESENT: normal capillary refill. ABSENT: pallor GI/Abdominal exam: PRESENT: Randall's sign, soft, tenderness - Right upper quadrant. ABSENT: distended Rectal exam: PRESENT: deferred Extremities exam: ABSENT: clubbing Musculoskeletal exam: ABSENT: deformity Neurological exam: PRESENT: alert, awake, oriented to person, oriented to place, oriented to time, oriented to situation Psychiatric exam: ABSENT: agitated, anxious, depressed Focused psych exam: ABSENT: delusional Skin exam: ABSENT: cyanosis, erythema, jaundice Results Laboratory Results: 03/29/19 20:45 03/29/19 20:45 03/29/19 03/29/19 03/29/19 20:45 20:45 20:45 WBC 6.1 RBC 4.21 Hgb 10.0 L Hct 32.9 L MCV 78 L MCH 23.8 L MCHC 30.5 L RDW 15.0 H Plt Count 222 Seg Neutrophils % 77.4 Lymphocytes % 15.9 Monocytes % 4.8 Eosinophils % 1.3 Basophils % 0.6 Absolute Neutrophils 4.7 Absolute Lymphocytes 1.0 Absolute Monocytes 0.3 Absolute Eosinophils 0.1 Absolute Basophils 0.0 Sodium 141.0 Potassium 3.5 L Chloride 104 Carbon Dioxide 29 Anion Gap 8 BUN 13 Creatinine 0.68 Est GFR ( Amer) > 60 Est GFR (Non-Af Amer) > 60 Glucose 86 Calcium 9.9 Total Bilirubin 0.3 AST 24 ALT 30 Alkaline Phosphatase 104 Total Protein 7.1 Albumin 4.0 Lipase 187.2 Serum HCG, Qual NEGATIVE Urine Color Urine Appearance Urine pH Ur Specific [place] Urine Protein Urine Glucose (UA) Urine Ketones Urine Blood Urine Nitrite Ur Leukocyte Esterase Urine WBC (Auto) Urine RBC (Auto) 03/29/19 23:40 WBC RBC Hgb Hct MCV MCH MCHC RDW Plt Count Seg Neutrophils % Lymphocytes % Monocytes % Eosinophils % Basophils % Absolute Neutrophils Absolute Lymphocytes Absolute Monocytes Absolute Eosinophils Absolute Basophils Sodium Potassium Chloride Carbon Dioxide Anion Gap BUN Creatinine Est GFR ( Amer) Est GFR (Non-Af Amer) Glucose Calcium Total Bilirubin AST ALT Alkaline Phosphatase Total Protein Albumin Lipase Serum HCG, Qual Urine Color YELLOW Urine Appearance CLEAR Urine pH 6.0 Ur Specific [place] > 1.060 Urine Protein NEGATIVE Urine Glucose (UA) NEGATIVE Urine Ketones 20 H Urine Blood SMALL H Urine Nitrite NEGATIVE Ur Leukocyte Esterase NEGATIVE Urine WBC (Auto) 1 Urine RBC (Auto) 5 03/29/19 03/29/19 20:45 20:45 Creatine Kinase 64 Troponin I < 0.012 Impressions: Chest X-Ray 03/29/19 20:03 IMPRESSION: No acute disease. copyright 2010 [employer]- All Rights Reserved Abdomen/Pelvis CT 03/29/19 21:40 IMPRESSION: Cholelithiasis with mild dilatation of the intrahepatic and common bile ducts to the level of the ampulla. Correlate for obstructive laboratories. Mildly enlarged left inguinal lymph node, nonspecific. TECHNICAL DOCUMENTATION: Quality ID # 436: Final reports with documentation of one or more dose reduction techniques (e.g., Automated exposure control, adjustment of the mA and/or kV according to patient size, use of iterative reconstruction technique) copyright 2011 [employer]- All Rights Reserved Abdomen Ultrasound 03/29/19 22:55 IMPRESSION: Cholelithiasis with pericholecystic fluid and a sonographic Randall sign, concerning for acute cholecystitis. Dilated common bile duct, which may be due to choledocholithiasis. An MRCP may be useful in further evaluation. copyright 2011 [employer]- All Rights Reserved Assessment & Plan - Diagnosis (1) Cholecystitis Is this a current diagnosis for this admission?: Yes - Plan Summary Plan Summary: 48-year-old female with right upper quadrant pain, gallstones, gallbladder wall thickening, nausea, and vomiting. I have diagnosed patient with acute cholecystitis. I will admit her to the hospital, start her on Zosyn. I have discussed operative intervention with the patient, and she has agreed. I have offered her laparoscopic versus open cholecystectomy. Her total bilirubin and LFTs are normal. Risks/benefits discussed, informed consent obtained, and all questions answered.
[2019-03-30] MEDS ORDERED: GLYCOPYRROLATE 1 MG/5 ML SYRINGE ONE (09:54)
[2019-03-30] MEDS ORDERED: ONDANSETRON HCL INJ/PF 4 MG/2 ML SDV ONE (09:54)
[2019-03-30] MEDS ORDERED: SUCCINYLCHOLINE CHLORIDE INJ 200 MG/10 ML VIAL ONE (09:54)
[2019-03-30] MEDS ORDERED: DEXAMETHASONE SOD PHOSPHATE INJ 4 MG/1 ML VIAL ONE (09:54)
[2019-03-30] MEDS ORDERED: LIDOCAINE 2% INJ-PF (20 MG/ML) 2 ML AMPUL ONE (09:54)
[2019-03-30] MEDS ORDERED: ROCURONIUM BROMIDE INJ 50 MG/5 ML VIAL IV ONE (09:54)
[2019-03-30] MEDS ORDERED: NEOSTIGMINE METHYLSULFATE 10 MG/10 ML VIAL ONE (09:54)
[2019-03-30] MEDS ORDERED: METOCLOPRAMIDE HCL INJ/PF 10 MG/2 ML SDV ONE (09:54)
[2019-03-30] MEDS ORDERED: KETOROLAC TROMETHAMINE 60 MG/2 ML SDV ONE (09:54)
[2019-03-30] MEDS ORDERED: NICOTINE 14 MG/24 HR PATCH.TD24 TD SCH (10:00)
[2019-03-30] MEDS ORDERED: DEXMEDETOMIDINE INJ 80 MCG/20 ML VIAL IV ONE (11:38)
[2019-03-30] MEDS ORDERED: PROPOFOL INJ 200 MG/20 ML VIAL IV ONE (11:38)
[2019-03-30] MEDS ORDERED: FENTANYL CITRATE INJ/PF 100 MCG/2 ML AMPUL ONE ×2 (11:38→13:00)
[2019-03-30] MEDS ORDERED: ACETAMINOPHEN 1,000 MG/100 ML RTUPB IV ONE (11:38)
[2019-03-30] MEDS ORDERED: MIDAZOLAM 2 MG/2 ML INJ ONE (11:38)
[2019-03-30] MEDS ORDERED: BUPIVACAINE HCL 0.5%-EPI 1:200000 INJ/PF 30 ML VIAL ONE (11:48)
[2019-03-30] MEDS ORDERED: MORPHINE SULFATE 10 MG/ML INJ IV PRN (12:41)
[2019-03-30] MEDS ORDERED: OXYCODONE-ACETAMINOPHEN 5-325 MG TABLET PO PRN ×2 (12:41)
[2019-03-30] MEDS ORDERED: FENTANYL CITRATE INJ/PF 100 MCG/2 ML AMPUL IV PRN ×3 (12:41)
[2019-03-30] MEDS ORDERED: DIPHENHYDRAMINE HCL 50 MG/ML VIAL IV PRN (12:41)
[2019-03-30] MEDS ORDERED: PROMETHAZINE HCL INJ 25 MG/1 ML VIAL IV PRN ×2 (12:41)
[2019-03-30] MEDS ORDERED: MEPERIDINE HCL/PF INJ 25 MG/1 ML DISP.SYRIN IV PRN (12:41)
[2019-03-30] MEDS: FENTANYL CITRATE INJ/PF 100 MCG/2 ML AMPUL ONE ×2 (13:55→14:15)
--- NOTE | 2019-03-30 14:15 | OPERATIVE REPORT E ---
Operative Report NAME: MILLIE CAMPBELL : 1970 AGE: 48Y DATE OF SURGERY: 03/30/2019 ROOM: 436 PREOPERATIVE DIAGNOSIS: ACUTE CHOLECYSTITIS, CHOLELITHIASIS. OPERATION: LAPAROSCOPIC CHOLECYSTECTOMY. SURGEON: MERCEDES LAMB M.D. ANESTHESIA: General. INDICATION: This is a 48-year-old female complaining of right upper quadrant pains and epigastric pains when seen in the ED last night. Ultrasound of the abdomen revealed gallstones and acute cholecystitis. The patient was then taken to the OR for laparoscopic cholecystectomy. PROCEDURE: After adequate general anesthesia, the patient was placed in supine position and the abdomen prepped and draped in the usual sterile fashion. Appropriate timeout was then called. Next, an infraumbilical incision was made and the fascia identified and divided. Digital dissection was then done, making sure there were no adhesions in the peritoneal cavity. Nuno trocar was then inserted through the fascia of the abdominal cavity, and CO2 insufflated to a pressure of 15 mmHg. Three other trocars were placed, a 12 mm in the subxiphoid and two 5 mm in the right upper quadrant under direct vision. The gallbladder was noted to be thickened with a lot of adhesions. The gallbladder was then grasped at the tip and adhesions bluntly lysed with the use of harmonic lonny. The infundibulum was subsequently grasped and the cystic duct dissected. There were a lot of adhesions noted and some edema around the gallbladder wall. There were gallstones close to the cystic duct area. The cystic duct was then dissected as well as the cystic artery. After the angle of safety was identified, the cystic duct was then clipped with two Hemoclips proximally and a distal clip on the gallbladder side. This was then divided between the two distal clips. Cystic artery also clipped with Hemoclips and divided with the use of Harmonic lonny. The gallbladder was then taken off the liver bed with the use of Harmonic lonny. The gallbladder was then removed and placed in an Endobag and pulled out through the umbilical port. The trocars were put back, and liver bed inspected and irrigated. No active bleeding was noted. However, because of the thick adhesions, a #15 [employer] drain was then placed to the area of the liver bed and pulled out through the more proximal trocar site. The drain was then anchored to the skin with 2-0 silk. Next, all the trocars were removed and CO2 allowed to come out of the trocar sites. Infraumbilical fascial defect was then closed with a [id number] suture using 0 Vicryl and the two stay sutures tied together for better closure. Next, all the incisions were closed with running subcuticular 4-0 Vicryl undyed. Sterile dressings placed over the operative sites. Needle, instrument, and sponge counts were all correct. Estimated blood loss no more than 20 mL. The patient was brought to the recovery room in satisfactory condition and extubated. DICTATING PHYSICIAN: MERCEDES LAMB M.D. [id number] PHY#: [id number] ID: [id number] JOB#: [id number] ACCT: [id number] cc:MERCEDES LAMB M.D. > MTDD
[2019-03-30] MEDS: KETOROLAC TROMETHAMINE INJ/PF 30 MG/1 ML SDV IV SCH ×2 (18:11→23:29)
--- NOTE | 2019-03-30 19:42 | EKG REPORT ---
SEVERITY:- NORMAL ECG - SINUS RHYTHM : Confirmed by: Joann Whitlock MD 30-Mar-2019 19:41:54
[2019-03-30] MEDS: OXYCODONE-ACETAMINOPHEN 5-325 MG TABLET PO PRN (20:29)
[2019-03-31] MEDS: PIPERACILLIN SODIUM/TAZOBACTAM 3.375 GM in NORMAL SALINE 100 ML IV SCH (05:08)
[2019-03-31] MEDS: KETOROLAC TROMETHAMINE INJ/PF 30 MG/1 ML SDV IV SCH (05:09)
[2019-03-31 07:36] LABS: ABSOLUTE LYMPHOCYTES (AUTO) 1.4 10^3/uL (0.5-4.7); ABSOLUTE MONOCYTES (AUTO) 0.5 10^3/uL (0.1-1.4); ABSOLUTE NEUT (AUTO) 5.9 10^3/uL (1.7-8.2); BASOPHILS % (AUTO) 0.3 % (0-2); EOSINOPHILS % (AUTO) 0.6 % (0-6); HEMATOCRIT 29.5 % (36.0-47.0); HEMOGLOBIN 9.1 g/dL (12.0-15.5); LYMPHOCYTES % (AUTO) 17.8 % (13-45); MEAN CORPUSCULAR HEMOGLOBIN 23.9 pg (27.0-33.4); MEAN CORPUSCULAR HGB CONC 30.9 g/dL (32.0-36.0); MEAN CORPUSCULAR VOLUME 78 fl (80-97); MONOCYTES % (AUTO) 6.5 % (3-13); PLATELET COUNT 188 10^3/uL (150-450); RED BLOOD COUNT 3.81 10^6/uL (3.72-5.28); RED CELL DISTRIBUTION WIDTH 14.5 % (11.5-14.0); SEGMENTED NEUTROPHILS % (AUTO) 74.8 % (42-78); TOTAL CELLS COUNTED % (AUTO) 100 %; WHITE BLOOD COUNT 7.8 10^3/uL (4.0-10.5)
[2019-03-31 07:52] LABS: ALANINE AMINOTRANSFERASE 60 U/L (9-52); ALBUMIN 3.2 g/dL (3.5-5.0); ALKALINE PHOSPHATASE 102 U/L (38-126); ANION GAP 7 (5-19); ASPARTATE AMINO TRANSFERASE 60 U/L (14-36); BILIRUBIN,DIRECT 0.2 mg/dL (0.0-0.4); BILIRUBIN,TOTAL 0.5 mg/dL (0.2-1.3); BLOOD UREA NITROGEN 8 mg/dL (7-20); CALCIUM 9.1 mg/dL (8.4-10.2); CARBON DIOXIDE 26 mmol/L (22-30); CHLORIDE 106 mmol/L (98-107); GLUCOSE 77 mg/dL (75-110); LIPASE 94.4 U/L (23-300); POTASSIUM 3.6 mmol/L (3.6-5.0); SODIUM 139.4 mmol/L (137-145); TOTAL PROTEIN 5.9 g/dL (6.3-8.2)
[2019-03-31] MEDS: OXYCODONE-ACETAMINOPHEN 5-325 MG TABLET PO PRN (11:08)
--- NOTE | 2019-03-31 13:59 | DISCHARGE SUMMARY E ---
Discharge Summary NAME: MILLIE CAMPBELL : 1970 AGE: 48Y ADMITTED: 03/30/2019 DISCHARGED: 03/31/2019 PROCEDURE DONE: Laparoscopic cholecystectomy 03/30/2019. SURGEON: Lloyd Abrams M.D. FINAL DIAGNOSES: 1. Acute cholecystitis. 2. Cholelithiasis. HOSPITAL COURSE: This is a 48-year-old female who underwent laparoscopic cholecystectomy for acute cholecystitis and cholelithiasis on 03/30/2019. Postoperatively the patient did very well and tolerated regular diet on 03/31/2019. The drain was removed on 03/31/2019 since not much drainage. Her incisions look clean and dry. Her enzymes just slightly elevated with ALT and AST about 60. Patient advised to avoid any lifting more than 10 to 15 pounds and follow up in the surgical clinic in 2 weeks. Patient given a prescription for Percocet to take 1 every 8 hours for the next 2 days and then after that may take Toradol 10 mg p.o. q.8 hours p.r.n. for pain. Patient subsequently discharged improved on 03/31/2019 with above final diagnosis. DICTATING PHYSICIAN: LLOYD ABRAMS M.D. [id number] PHY#: [id number] ID: [id number] JOB#: [id number] ACCT: [id number] cc:LLOYD ABRAMS M.D. CARTER DICKENS, N.P. >
[2019-03-31 14:29] VITALS: BP 129/65
== END 2019-03-31 14:43 | disposition home or self-care (01) ==
LOC: ER 19:54 → EH 03-30 00:46 → 4S 03-30 03:02
PROVIDERS: ATTEND Surgery
PROC: 0FT44ZZ Resection of Gallbladder, Percutaneous Endoscopic Approach (ICD-10-PCS; principal; 2019-03-30 12:15)
DX: K80.12 Calculus of gallbladder with acute and chronic cholecystitis without obstruction (principal); F17.210 Nicotine dependence, cigarettes, uncomplicated; F12.10 Cannabis abuse, uncomplicated; I10 Essential (primary) hypertension; D64.9 Anemia, unspecified; Z98.84 Bariatric surgery status; Z86.39 Personal history of other endocrine, nutritional and metabolic disease
CPT/HCPCS: 47562; 93005; 96376; 99285; 96361; 96375; 96365; 36415 ×2; 82962; 82550; 83690 ×2; 84703; 85025 ×2; 80053 ×2; 81001; 84484; 88304 ×2; 71046; 76705; 74177; 94799; 93010; G0378 ×3; J2250; J3490 ×4; J1100; J1885 ×3; J3010; J2765; J2270; J2710; J1170; J0330; J2405 ×2; J7121; J7050 ×2; J7030; J2704; J2543 ×2; J0131; 790